=== PATIENT | male | born 1950 | race Caucasian/White ===

== ENCOUNTER 2019-08-29 00:43 | Emergency (ER) | payer MEDICARE, SELFPAY ==
[2019-08-29 00:45] VITALS: BP 128/84; PULSE 106; RESP 18; TEMP 36.9; O2SAT 96; BMI 34.4
--- NOTE | 2019-08-29 00:51 | ED_ITS ---
Entered by Wilda Mo, acting as scribe for HPI - GI Bleed General: Chief complaint: GI Bleed Stated complaint: rectal bleeding Time Seen by Provider: 08/29/19 00:52 Source: patient Mode of arrival: ambulatory Limitations: no limitations History of Present Illness: HPI Narrative: 69 yo m came to the er pov for rectal bleeding. Onset was last night. Pt states that he has had some constipation. Pt states that he went to the bathroom and there was some blood. Pt has stage 3 lung cancer. Pt has not had a very good bowel movement in a long time. hx of atril fib and copd. Pt has also had a gi bleed before. MD complaint: blood streaked emesis Onset (ago): day(s) (last night) Pain Consistency: intermittent Severity: mild Relieving factors: none Exacerbating factors: none Context: history of GI bleed Associated symptoms: Reports abdominal pain and nausea; Denies chills, epistaxis, fever(s), headache(s), rash or vomiting Review of Systems General: Reports: other (negative unless marked) Const: Denies: fever or chills Eyes: Denies: change in vision ENMT: Reports: post nasal drip; Denies: painful swallowing, bleeding gums, nose bleeds or facial/sinus pain Card: Reports: irregular heart rhythm and shortness of breath on exertion; Denies: chest pain, palpitations, edema or swelling of feet/ankles Resp: Reports: shortness of breath and wheezing GI: Reports: abdominal pain, nausea, rectal pain and blood in stool; Denies: vomiting : Denies: difficulty urinating, painful urination, urinary frequency, urinary urgency or blood in urine Musc: Denies: neck pain, back pain, redness or joint warmth Skin/Breast: Denies: rash or itching Neuro: Denies: headache, dizziness or vertigo Psych: Denies: anxiety PFSH ED PFSH: Social History Smoking and tobacco status: current every day smoker Physical Exam Const: COMMON NORMALS: no apparent distress and oriented x3 HENMT: COMMON NORMALS: normocephalic HEAD & SCALP: normocephalic FACE & SINUS: normal facial exam Chest: COMMONS NORMALS: inspection of chest normal CHEST: No tenderness Resp: EFFORT & INSPECTION: Yes audible wheezes AUSCULTATION: no rales, no rhonchi, wheezes and lung sounds not diminished Cardio: RHYTHM: abnormal rhythm irregularly irregular GI: COMMON NORMALS: non-tender INSPECTION: Yes normal to inspection RECTAL EXAM: Yes visual inspection normal and Yes heme positive stool gross blood Neuro: COMMON NORMALS: oriented x3 Course Vital Signs: Vital signs: Vital Signs Temperature 98.4 F 08/29/19 00:45 Pulse Rate 106 H 08/29/19 00:45 Respiratory Rate 18 08/29/19 00:45 Blood Pressure 128/84 08/29/19 00:45 Pulse Oximetry 96 08/29/19 00:45 MDM - GI Bleed MDM Narrative: Medical decision making narrative: 69-year-old male presents with some rectal bleeding with stool. He has been constipated, and having some liquid stools here and there. He states that he is not had a good bowel movement in quite some time. He is treated with MiraLAX. His laboratory is b enign. His belly is benign on exam, save distention. His rectal exam is positive for heme stool, but only a small amount. There is no gross rectal bleeding. He will be allowed home. We will treat his constipation. Lab Data: Labs: Lab Results 08/29/19 08/29/19 08/29/19 Range/Units 01:20 01:20 01:20 WBC 9.9 (4.0-10.0) 10^3/ uL RBC 3.79 L (4.1-5.3) 10^6/u L Hgb 11.9 (11.7-16.6) g/dL Hct 38.5 L (42.0-52.0) % MCV 101.6 H (80-94) fL MCH 31.4 (28.0-34.0) pg MCHC 30.9 (30.0-36.0) g/dL RDW 15.5 H (12.1-15.1) % Plt Count 175 (130-400) 10^3/c mm MPV 10.6 H (7.4-10.4) fL Neut % (Auto) 82.4 % Lymph % (Auto) 6.2 % Brooks % (Auto) 9.0 % Eos % (Auto) 1.5 % Baso % (Auto) 0.5 % Neut # (Auto) 8.1 H (1.8-7.7) 10^3/u L Lymph # (Auto) 0.6 L (0.8-4.8) 10^3/u L Brooks # (Auto) 0.9 (0.2-0.9) 10^3/u L Eos # (Auto) 0.2 (0.0-0.8) 10^3/u L Baso # (Auto) 0.1 (0.0-0.1) 10^3/u L Nucleated RBC % (a uto) 0 % Nucleated RBCs # 0.0 /100WBC PT 13.30 (10.5-13.3) SECO NDS INR 0.98 (0.8-1.2) APTT 17.7 L (23.9-36.7) SECO NDS Sodium 140 (136-145) mmol/L Potassium 4.3 (3.5-5.1) mmol/L Chloride 105 (98-107) mmol/L Carbon Dioxide 27 (22-29) mmol/L Anion Gap 12.3 (5-19) BUN 21 (8-23) mg/dL Creatinine 1.2 (0.7-1.2) mg/dL GFR Calculation 60.2 L (90-130) mL/min Glucose 116 H (65-115) mg/dL Calcium 8.6 (8.5-10.5) mg/dL Total Bilirubin 0.3 (0.15-1.2) mg/dL AST 17 (0-40) U/L ALT 14 (0-41) U/L Alkaline Phosphata se 65 (40-130) IU/L Total Protein 5.4 L (6.6-8.7) g/dL Albumin 3.3 L (3.5-5.2) g/dL Globulin 2.1 (1.3-4.6) g/dL Lipase 12 L (13-60) U/L Discharge Plan Discharge Patient Disposition: Home, Self-Care Clinical Impression: Hematochezia Constipation Qualifiers: Constipation type: unspecified constipation type Qualified Code(s): K59.00 - Constipation, unspecified Condition: Stable Referrals: Terri Mcmillan DO [Primary Care Provider] - Aileen Gonzalez MD [Physician] - 4-7 days Discharge Diet: Advance as tolerated Discharge Activity: Increase activity as tolerated Patient Instructions: Constipation (ED), Rectal Bleeding (ED) Activity Restrictions/Additional Instructions: Return for worsening belly pain, fever greater than 100, worsening bleeding from the rectum with passage of large clots, other concerning symptoms. Take the magnesium citrate as directed at home, to relieve constipation. Discharge Date/Time: 08/29/19 04:00 Coding Level of Care Code ED Supervisor Claims for Chg Fwd Exam Detailed The documentation recorded by the Chepe lafleur Stephanie Lyn, accurately reflects the service I personally performed and the decisions made by Kulwinder altamirano Jeremy John, DO Aug 29, 2019 00:43
[2019-08-29 01:44] LABS: Basophils # 0.1 10^3/uL (0.0-0.1); Basophils % 0.5 %; Eosinophils # 0.2 10^3/uL (0.0-0.8); Eosinophils % 1.5 %; Hematocrit 38.5 % (42.0-52.0); Hemoglobin 11.9 g/dL (11.7-16.6); Lymphocytes # 0.6 10^3/uL (0.8-4.8); Lymphocytes % 6.2 %; Mean Corpuscular HGB Conc 30.9 g/dL (30.0-36.0); Mean Corpuscular Hemoglobin 31.4 pg (28.0-34.0); Mean Corpuscular Volume 101.6 fL (80-94); Mean Platelet Volume 10.6 fL (7.4-10.4); Monocytes # 0.9 10^3/uL (0.2-0.9); Neutrophils # 8.1 10^3/uL (1.8-7.7); Neutrophils % 82.4 %; Nucleated Red Blood Cells % 0 %; Platelet Count 175 10^3/cmm (130-400); Red Blood Count 3.79 10^6/uL (4.1-5.3); Red Cell Distribution Width 15.5 % (12.1-15.1); White Blood Count 9.9 10^3/uL (4.0-10.0)
--- NOTE | 2019-08-29 01:46 | XR_ITS ---
WS: [id number] XR KUB portable [id number] REASON FOR EXAM: distension FINDINGS: AP upright abdomen shows a prominent fatty apron of the lower abdomen. There is no air-fluid levels to suggest obstruction. 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 No true obstructive changes. The lower abdomen suggestive fatty apron Both hip joints show advanced degenerate changes. XR/XR KUB portable [id number] IMPRESSION: The lower abdomen suggest fatty apron. Degenerated changes both hip joints. No obstruction changes.
[2019-08-29 03:03] LABS: INR 0.98 (0.8-1.2)
[2019-08-29 03:04] LABS: Partial Thromboplastin Time 17.7 SECONDS (23.9-36.7)
[2019-08-29 03:07] LABS: Alanine Aminotransferase 14 U/L (0-41); Albumin Level 3.3 g/dL (3.5-5.2); Alkaline Phosphatase 65 IU/L (40-130); Anion Gap 12.3 (5-19); Aspartate Amino Transferase 17 U/L (0-40); Blood Urea Nitrogen 21 mg/dL (8-23); Calcium 8.6 mg/dL (8.5-10.5); Carbon Dioxide 27 mmol/L (22-29); Chloride 105 mmol/L (98-107); Globulin 2.1 g/dL (1.3-4.6); Glomerular Filtration Rate 60.2 mL/min (90-130); Glucose 116 mg/dL (65-115); Lipase 12 U/L (13-60); Potassium 4.3 mmol/L (3.5-5.1); Sodium 140 mmol/L (136-145); Total Bilirubin 0.3 mg/dL (0.15-1.2); Total Protein 5.4 g/dL (6.6-8.7)
--- NOTE | 2019-08-29 04:00 | PC.NURSE ---
Patient dc'd home in stable condition via wheelchair. Discharge papers given and explained to pation with all questions asked and answered.
[2019-08-29] MEDS: magnesium citrate Btl 296 mL PO (04:01)
== END 2019-08-29 04:00 | disposition home or self-care (01) ==
PROVIDERS: Emergency Provider Emergency Medicine; Family Provider Family Medicine; PCP Family Medicine
DX: K92.1 Melena (principal); K59.00 Constipation, unspecified; C34.90 Malignant neoplasm of unspecified part of unspecified bronchus or lung; I48.91 Unspecified atrial fibrillation; J44.9 Chronic obstructive pulmonary disease, unspecified; F17.200 Nicotine dependence, unspecified, uncomplicated
CPT/HCPCS: 12345; 74018; 80053; 83690; 85025; 85610; 85730; 86850; 86900; 99281; 99283

== ENCOUNTER → 2019-11-30 12:07 | Outpatient (BNVA) | payer MEDICARE, SELFPAY | PROVIDERS: Family Provider Family Medicine; PCP Family Medicine; Visit Provider Family Medicine | DX: Z00.00 Encounter for general adult medical examination without abnormal findings (principal); Z28.21 Immunization not carried out because of patient refusal; Z53.20 Procedure and treatment not carried out because of patient's decision for unspecified reasons; Z71.89 Other specified counseling; J44.9 Chronic obstructive pulmonary disease, unspecified; I10 Essential (primary) hypertension; I48.91 Unspecified atrial fibrillation; F32.9 Major depressive disorder, single episode, unspecified; G89.4 Chronic pain syndrome | CPT/HCPCS: 80053; 80061; 85025 ==

== ENCOUNTER → 2020-02-09 15:05 | Outpatient (BNVA) | payer MEDICARE, SELFPAY | PROVIDERS: Family Provider Family Medicine; PCP Family Medicine; Visit Provider Specialist | DX: M25.552 Pain in left hip (principal); M16.0 Bilateral primary osteoarthritis of hip | CPT/HCPCS: 73502 ==